=== PATIENT | male | born 1960 | race African-American/Black ===

== ENCOUNTER 2022-01-05 01:29 | Emergency (ER) | payer OTHER, SELFPAY ==
[2022-01-05] MEDS ORDERED: Cyclobenzaprine 10 MG TAB ONE (03:04)
[2022-01-05] MEDS ORDERED: Ketorolac Tromethamine 30 MG/ML VIAL ONE (03:04)
== END 2022-01-05 05:38 | disposition home or self-care (01) ==
LOC: CSHERS 01:29
DX: S09.90XA Unspecified injury of head, initial encounter (principal); M54.2 Cervicalgia; M54.50 Low back pain, unspecified; F17.210 Nicotine dependence, cigarettes, uncomplicated; W18.30XA Fall on same level, unspecified, initial encounter
CPT/HCPCS: 70450; 72125; 72131; 96372; J1885